=== PATIENT | female | born 1980 | race Caucasian/White ===

== ENCOUNTER 2019-03-22 14:34 | Inpatient (IN) | payer MEDICAID, OTHER ==
[~2019-03-22] VITALS: Ht 165.1 cm; Wt 66.5 kg
[~2019-03-22 14:34] MED LIST: CALC600T24 PO; ERTA1VIA3 IM; FERR240T9 PO; HYDR-3601 PO; OMEP40CA6 PO; PREN-39 PO; TRAM50TA PO; VANC1.257 IV
[2019-03-22] MEDS ORDERED: PIPER-TAZO 3.375 GM IV (PMX) 100 ML IVPB STA (16:27)
[2019-03-22] MEDS ORDERED: VANCOMYCIN 1 GM (PMX) 250 ML IVPB ONE (16:30)
[2019-03-22] MEDS ORDERED: morphine 4 MG/ML VIAL IV STA (16:38)
[2019-03-22] MEDS ORDERED: ONDANSETRON 4 MG INJ IV PRN (17:30)
[2019-03-22] MEDS ORDERED: ACETAMINOPHEN 325 MG TAB PO PRN ×2 (17:30→19:30)
[2019-03-22] MEDS: VANCOMYCIN 1 GM 250 ML IVPB SCH (18:00)
[2019-03-22] MEDS ORDERED: VANCOMYCIN IV PER PHARMACY XX SCH (19:30)
[2019-03-22] MEDS ORDERED: ONDANSETRON (ODT) 4 MG TAB ODT PRN (19:30)
[2019-03-22] MEDS: FERROUS GLUCONATE (EC) 325 MG TAB PO SCH (20:38)
[2019-03-22 21:51] VITALS: Ht 165.1 cm; Wt 66.5 kg
[2019-03-22 22:00] VITALS: BP 115/60; PULSE 82; RESP 18
[2019-03-23] VITALS (16 sets, daily range): BP systolic 94–145; BP diastolic 51–83; PULSE 61–94; RESP 12–20
[2019-03-23] MEDS: PIPER-TAZO 3.375 GM IV (PMX) 100 ML IVPB SCH ×3 (00:57→17:10)
[2019-03-23] MEDS: VANCOMYCIN 1 GM 250 ML IVPB SCH ×2 (05:45→18:09)
[2019-03-23] MEDS ORDERED: ACETAMINOPHEN 500 MG TAB PO ONE (07:00)
[2019-03-23] MEDS ORDERED: LIDOCAINE 2% (SDV) 5 ML INJ ONE (07:53)
[2019-03-23] MEDS ORDERED: PROPOFOL 40 ML ONE (07:53)
[2019-03-23] MEDS ORDERED: MIDAZOLAM 1 MG/ML 2 ML INJ ONE (07:53)
[2019-03-23] MEDS ORDERED: FENTAnyl 50 MCG/ML VIAL ONE ×2 (07:55→09:22)
[2019-03-23] MEDS ORDERED: ONDANSETRON 4 MG INJ ONE (07:55)
[2019-03-23] MEDS ORDERED: FAMOTIDINE 20 MG INJ ONE (07:56)
[2019-03-23] MEDS ORDERED: ALBUTEROL 0.083% (NEB) 2.5 MG/3 ML AMP HHN PRN (08:00)
[2019-03-23] MEDS ORDERED: ONDANSETRON 4 MG INJ IV PRN ×2 (08:00→09:30)
[2019-03-23] MEDS ORDERED: FENTAnyl 50 MCG/ML VIAL IV PRN ×2 (08:00)
[2019-03-23] MEDS ORDERED: HYDROmorphONE 1 MG/5 ML IV SYRINGE IV PRN ×3 (08:00)
[2019-03-23] MEDS ORDERED: LABETALOL HCL 20MG INJ IV PRN (08:00)
[2019-03-23] MEDS ORDERED: morphine 2 MG INJ IV PRN ×2 (08:00)
[2019-03-23] MEDS ORDERED: EPHEDrine 25 MG/5 ML SYG IV PRN (08:00)
[2019-03-23] MEDS ORDERED: DIPHENHYDRAMINE 50 MG INJ IV PRN (08:00)
[2019-03-23] MEDS ORDERED: MEPERIDINE 25 MG INJ IV PRN (08:00)
[2019-03-23] MEDS ORDERED: OXYCODONE/ACETAMINOPHEN (5/325) TAB PO PRN ×2 (08:00)
[2019-03-23] MEDS ORDERED: hydrALAzine 20 MG INJ IV PRN (08:00)
[2019-03-23] MEDS ORDERED: DEXAMETHASONE 4 MG/ML 5 ML INJ ONE (08:42)
[2019-03-23] MEDS ORDERED: PHENYLephrine (100 MCG/ML) 10ML SYG ONE (08:46)
[2019-03-23] MEDS ORDERED: ESMOLOL 10 ML ONE (08:53)
[2019-03-23] MEDS: FERROUS GLUCONATE (EC) 325 MG TAB PO SCH ×3 (09:00→21:24)
[2019-03-23] MEDS ORDERED: KETOROLAC 30 MG INJ ONE (09:06)
[2019-03-23] MEDS: KETOROLAC 15 MG INJ IV SCH ×3 (11:28→23:08)
[2019-03-23] MEDS: FAMOTIDINE 20 MG TAB PO SCH (21:24)
[2019-03-23] MEDS: HEPARIN 5,000 UNIT/1 ML VIAL SC SCH (21:26)
[2019-03-24] MEDS: PIPER-TAZO 3.375 GM IV (PMX) 100 ML IVPB SCH ×3 (01:21→16:47)
[2019-03-24 01:51] VITALS: BP 111/67; PULSE 67; RESP 17
[2019-03-24] MEDS: KETOROLAC 15 MG INJ IV SCH ×4 (05:46→22:58)
[2019-03-24] MEDS: VANCOMYCIN 1 GM 250 ML IVPB SCH (07:22)
[2019-03-24 07:59] VITALS: BP 112/67; PULSE 68; RESP 16
[2019-03-24] MEDS: FERROUS GLUCONATE (EC) 325 MG TAB PO SCH (08:48)
[2019-03-24] MEDS: FAMOTIDINE 20 MG TAB PO SCH ×2 (08:49→21:47)
[2019-03-24] MEDS: HEPARIN 5,000 UNIT/1 ML VIAL SC SCH ×2 (08:52→21:50)
[2019-03-24] MEDS: DAKINS 0.0125%(1/40) 473 ML SOLUTION TP SCH (10:09)
[2019-03-24] MEDS: SOD FERRIC GLUC COMPLX 125 MG in SOD CHLORIDE 0.9% 100 ML IVPB SCH (12:08)
[2019-03-24 13:39] VITALS: BP 116/66; PULSE 72; RESP 18
[2019-03-24] MEDS: HYDROCODONE/APAP (5/325) TAB PO PRN (13:47)
[2019-03-24] MEDS: morphine 2 MG INJ IV PRN (14:05)
[2019-03-24] MEDS: VANCOMYCIN 1.25 GM/NS 250 ML 250 ML IVPB SCH (18:14)
[2019-03-24 20:21] VITALS: BP 113/67; PULSE 75; RESP 18
[2019-03-25] MEDS: PIPER-TAZO 3.375 GM IV (PMX) 100 ML IVPB SCH ×3 (01:06→17:10)
[2019-03-25 02:00] VITALS: BP 110/69; PULSE 82; RESP 18
[2019-03-25] MEDS: VANCOMYCIN 1.25 GM/NS 250 ML 250 ML IVPB SCH ×2 (05:54→17:53)
[2019-03-25] MEDS: KETOROLAC 15 MG INJ IV SCH ×4 (05:54→23:08)
[2019-03-25 07:30] VITALS: BP 103/63; PULSE 76; RESP 16
[2019-03-25] MEDS: FAMOTIDINE 20 MG TAB PO SCH ×2 (08:29→20:21)
[2019-03-25] MEDS: HEPARIN 5,000 UNIT/1 ML VIAL SC SCH ×2 (08:30→20:24)
[2019-03-25] MEDS: DAKINS 0.0125%(1/40) 473 ML SOLUTION TP SCH (08:31)
[2019-03-25] MEDS: morphine 2 MG INJ IV PRN (13:46)
[2019-03-25] MEDS: SOD FERRIC GLUC COMPLX 125 MG in SOD CHLORIDE 0.9% 100 ML IVPB SCH (13:48)
[2019-03-25 14:53] VITALS: BP 112/64; PULSE 69; RESP 16
[2019-03-25 20:15] VITALS: BP 107/66; PULSE 76; RESP 16
[2019-03-25] MEDS: HYDROCODONE/APAP (5/325) TAB PO PRN (20:22)
[2019-03-25 23:24] VITALS: BP 128/73; PULSE 71; RESP 17
[2019-03-26] MEDS: PIPER-TAZO 3.375 GM IV (PMX) 100 ML IVPB SCH ×3 (00:32→17:19)
[2019-03-26 01:12] VITALS: BP 111/54; PULSE 71; RESP 16
[2019-03-26] MEDS: KETOROLAC 15 MG INJ IV SCH (05:23)
[2019-03-26] MEDS: VANCOMYCIN 1.25 GM/NS 250 ML 250 ML IVPB SCH ×2 (05:28→18:37)
[2019-03-26 07:44] VITALS: BP 104/63; PULSE 83; RESP 16
[2019-03-26] MEDS: FAMOTIDINE 20 MG TAB PO SCH ×2 (09:15→20:06)
[2019-03-26] MEDS: DAKINS 0.0125%(1/40) 473 ML SOLUTION TP SCH (09:16)
[2019-03-26] MEDS: HEPARIN 5,000 UNIT/1 ML VIAL SC SCH ×2 (09:18→20:20)
[2019-03-26] MEDS: SOD FERRIC GLUC COMPLX 125 MG in SOD CHLORIDE 0.9% 100 ML IVPB SCH (13:03)
[2019-03-26 14:44] VITALS: BP 111/66; PULSE 84; RESP 16
[2019-03-26] MEDS: HYDROCODONE/APAP (5/325) TAB PO PRN (15:17)
[2019-03-26] MEDS: morphine 2 MG INJ IV PRN (17:37)
[2019-03-26 20:53] VITALS: BP 112/65; PULSE 76; RESP 16
[2019-03-26 22:00] VITALS: BP 124/60; PULSE 87; RESP 18
[2019-03-27] MEDS: PIPER-TAZO 3.375 GM IV (PMX) 100 ML IVPB SCH ×2 (00:22→08:26)
[2019-03-27] MEDS: HYDROCODONE/APAP (5/325) TAB PO PRN ×2 (00:58→08:25)
[2019-03-27 01:28] VITALS: BP 109/56; PULSE 80; RESP 16
[2019-03-27] MEDS: VANCOMYCIN 1.25 GM/NS 250 ML 250 ML IVPB SCH ×2 (05:44→17:55)
[2019-03-27 07:27] VITALS: BP 103/57; PULSE 85; RESP 16
[2019-03-27] MEDS: FAMOTIDINE 20 MG TAB PO SCH ×2 (08:24→21:00)
[2019-03-27] MEDS: DAKINS 0.0125%(1/40) 473 ML SOLUTION TP SCH (08:33)
[2019-03-27] MEDS: HEPARIN 5,000 UNIT/1 ML VIAL SC SCH ×3 (08:33→21:16)
[2019-03-27] MEDS ORDERED: ERTAPENEM SODIUM 1 GM in SOD CHLORIDE 0.9% 100 ML IVPB SCH (13:00)
[2019-03-27] MEDS: SOD FERRIC GLUC COMPLX 125 MG in SOD CHLORIDE 0.9% 100 ML IVPB SCH (13:22)
[2019-03-27 14:11] VITALS: BP 104/56; PULSE 79; RESP 16
[2019-03-27] MEDS: morphine 2 MG INJ IV PRN (15:19)
[2019-03-27] MEDS ORDERED: HYDROmorphONE 1 MG/ML SYG IV ONE (17:30)
[2019-03-27 20:28] VITALS: BP 120/64; PULSE 90; RESP 16
== END 2019-03-27 21:40 | disposition home health service (06) | DRG 585 ==
LOC: FTE 14:34 → 2NE 17:04 → OBSVTOIN 03-23 09:29
PROVIDERS: ADMIT Internal Medicine; ATTEND Internal Medicine
PROC: 0HBU0ZZ Excision of Left Breast, Open Approach (ICD-10-PCS; 2019-03-23)
PROC: 0H9U0ZX Drainage of Left Breast, Open Approach, Diagnostic (ICD-10-PCS; principal; 2019-03-23 12:30)
DX: N61.1 Abscess of the breast and nipple (principal); E03.9 Hypothyroidism, unspecified; D64.9 Anemia, unspecified; F41.9 Anxiety disorder, unspecified; N64.4 Mastodynia
CPT/HCPCS: 36415; 36573; 80048; 80053; 80061; 80202; 82565; 82607; 82746; 83036; 83540; 83735; 84100; 84520; 84703; 85025; 85610; 85730; 86480; 87070; 87075; 87102; 87116; 93005; 96365; 96375; G0378; J1100; J1170; J1335; J1644; J1885; J2250; J2270; J2370; J2405; J2543; J2916; J3010; J3370

== ENCOUNTER 2019-04-03 21:10 | Emergency (ER) | payer OTHER ==
[~2019-04-03] VITALS: Ht 154.9 cm; Wt 63.0 kg
[~2019-04-03 21:10] MED LIST changes: -CALC600T24 PO; -FERR240T9 PO; -PREN-39 PO
[2019-04-03 21:29] VITALS: Ht 154.9 cm; Wt 63.0 kg
[2019-04-03] MEDS ORDERED: CEFEPIME 2GM/50 ML (PMX) 50 ML IVPB STA (21:42)
[2019-04-03] MEDS ORDERED: ACETAMINOPHEN 325 MG TAB PO STA (21:42)
[2019-04-03] MEDS ORDERED: SODIUM CHLORIDE 0.9% 1L BAG IV* STA (21:42)
[2019-04-03] MEDS ORDERED: VANCOMYCIN 1 GM (PMX) 250 ML IVPB ONE (22:00)
[2019-04-03] MEDS ORDERED: DIPHENHYDRAMINE 50 MG INJ IV ONE (23:30)
[2019-04-04 00:44] VITALS: BP 99/72; PULSE 100; RESP 18
== END 2019-04-04 00:50 | disposition home or self-care (01) ==
LOC: E/R 21:10
DX: N61.1 Abscess of the breast and nipple (principal); R00.0 Tachycardia, unspecified
CPT/HCPCS: 36415; 71045; 80053; 83605; 84484; 85025; 85610; 85730; 87040; 93005; 96365; 96366; 96367; 96375; J0692; J1200; J3370; J7030; Z7502; Z7610